=== PATIENT | female | born 1995 | race Caucasian/White ===

== ENCOUNTER 2017-08-10 21:52 | Emergency (ER) | payer OTHER ==
--- NOTE | 2017-08-11 00:23 | EDM.PDOC ---
ED HPI GENERAL MEDICAL PROBLEM - General Chief Complaint: Skin Complaint Stated Complaint: [id number] LEG INFECTION Time Seen by Provider: 08/11/17 00:15 Source of Information: Reports: Patient, Family, RN, RN Notes Reviewed History Limitations: Reports: No Limitations - History of Present Illness INITIAL COMMENTS - FREE TEXT/NARRATIVE: Pt to ER with c/o skin infection to the right inner ankle/lower leg. She states this began Monday and has progressively gotten worse. Patient denies fever, chills, N/V/D. 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 Onset: Gradual Right Lower Leg Pain Score (Numeric/FACES): 4 - Related Data Allergies Allergy/AdvReac Type Severity Reaction Status Date / Time asparagus Allergy Vomiting Verified 08/10/17 22:49 Home Meds: Home Meds . [No Known Home Meds] 08/10/17 [History] Past Medical History Respiratory History: Reports: Asthma Dermatologic History: Reports: Eczema Social & Family History - Tobacco Use Smoking Status *Q: Never Smoker Second Hand Smoke Exposure: No - Caffeine Use Caffeine Use: Reports: Coffee, Energy Drinks, Soda, Tea - Recreational Drug Use Recreational Drug Use: No ED ROS GENERAL - Review of Systems Review Of Systems: ROS reveals no pertinent complaints other than HPI. ED EXAM, SKIN/RASH Exam: See Below Exam Limited By: No Limitations General Appearance: Alert, WD/WN, No Apparent Distress Eye Exam: Bilateral Eye: EOMI, Normal Inspection Ears: Normal External Exam, Hearing Grossly Normal Nose: Normal Inspection Throat/Mouth: Normal Inspection, Normal Voice, No Airway Compromise Head: Atraumatic, Normocephalic Neck: Normal Inspection, Supple, Non-Tender, Full Range of Motion Respiratory/Chest: No Respiratory Distress, Lungs Clear, Normal Breath Sounds, No Accessory Muscle Use, Chest Non-Tender Cardiovascular: Normal Peripheral Pulses, Regular Rate, Rhythm, No Edema, No Gallop, No JVD, No Murmur, No Rub Peripheral Pulses: 2+: Radial (L), Radial (R), Dorsalis Pedis (L), Dorsalis Pedis (R) GI/Abdominal: Normal Bowel Sounds, Soft, Non-Tender (Female) Exam: Deferred Rectal (Female) Exam: Deferred Back Exam: Normal Inspection, Full Range of Motion Extremities: Normal Range of Motion, Leg Pain (right lower leg) Neurological: Alert, Oriented, CN II-XII Intact, Normal Cognition, Normal Gait, Normal Reflexes, No Motor/Sensory Deficits Psychiatric: Normal Affect, Normal Mood Skin: Warm, Dry, Rash (2 rash areas developing cellulitis, weeping from open areas. Top area is 10 x 9cm, bottom portion 10 x 12cm) Location, Skin: Lower Extremity, Right Course - Vital Signs Last Recorded V/S: Last Vital Signs Temp 97.4 F 08/10/17 22:03 Pulse 102 H 08/10/17 22:03 Resp 17 08/10/17 22:03 BP 150/78 H 08/10/17 22:03 Pulse Ox 100 08/10/17 22:03 - Orders/Labs/Meds Labs: Laboratory Tests 08/10/17 Range/Units 22:00 Urine Color Yellow (YELLOW) Urine Appearance Clear (CLEAR) Urine pH 6.0 (5.0-9.0) Ur Specific [place] 1.020 (1.005-1.030) Urine Protein Negative (NEGATIVE) Urine Glucose (UA) Negative (NEGATIVE) Urine Ketones Negative (NEGATIVE) Urine Occult Blood Negative (NEGATIVE) Urine Nitrite Negative (NEGATIVE) Urine Bilirubin Negative (NEGATIVE) Urine Urobilinogen 0.2 (0.2-1.0) mg/dL Ur Leukocyte Esterase Negative (NEGATIVE) Urine RBC 0-5 /HPF Urine WBC 0-5 (0-5/HPF) /HPF Ur Epithelial Cells Few /HPF Urine Bacteria Few (0-FEW/HPF) /HPF Urine Mucus Moderate H /LPF Meds: Medications Discontinued Medications Generic Name Dose Route Start Last Admin Trade Name Andrae PRN Reason Stop Dose Admin Levofloxacin 750 mg 08/11/17 00:40 08/11/17 00:47 Levaquin PO 08/11/17 00:41 750 mg ONETIME ONE Administration - Re-Assessments/Exams Free Text/Narrative Re-Assessment/Exam: 08/12/17 01:15 Gave the patient Levaquin for coverage of Aeromonas hydrophila (found in fresh water marine per [facility] Abx guide). Wet to dry dressing to the area and Patient instructed to follow up Monday morning in the clinic. Departure - Departure Time of Disposition: 00:41 Disposition: Home, Self-Care 01 Condition: Fair Clinical Impression: Atopic dermatitis Qualifiers: Atopic dermatitis type: unspecified Qualified Code(s): L20.9 - Atopic dermatitis, unspecified - Discharge Information Instructions: Atopic Dermatitis Referrals: PCP,Not In Area [Primary Care Provider] - Forms: ED Department Discharge Additional Instructions: RX: Levaquin Follow up with your primary care facility tomorrow or next week for dermatology referral Wet to dry dressings until seen in the clinic
[2017-08-11] MEDS ORDERED: Levofloxacin 500 MG Tab PO ONE (00:40)
== END 2017-08-11 00:55 | disposition home or self-care (01) ==
LOC: DL.ED 21:52
DX: L20.9 Atopic dermatitis, unspecified (principal); Z91.018 Allergy to other foods
CPT/HCPCS: 81001; 87070; 99283; A9270; 87077; 87186